=== PATIENT | female | born 1955 | race Caucasian/White ===

== ENCOUNTER 2024-12-02 15:40 | Outpatient (CLI) | payer MEDICARE ==
[2024-12-02 16:34] LABS: #Basophils 0.06 10x3/uL (0.0-0.2); %Basophils 0.8 % (0.0-1.0); %Eosinophils 2.4 % (0.0-10.0); %Lymphocytes 41.4 % (21.0-51.0); %Monocytes 10.2 % (0.0-10.0); %Neutrophils 45.1 % (42.0-75.0); Hematocrit 37.9 % (36.0-47.0); Mean Corpuscular HGB CONC 34.3 g/dL (32.0-36.0); Mean Corpuscular Hemoglobin 31.6 pg (27.0-31.0); Mean Platelet Volume 9.5 fL (7.4-10.4); Platelet Count 165 10x3/uL (130-400); RBC Distribution Width 13.8 % (11.5-14.5); Red Blood Cell (RBC) Count 4.12 mill/uL (4.20-5.40)
[2024-12-02 16:52] LABS: Anion Gap 12 mmol/L (10-20); BUN (Urea Nitrogen) 18 mg/dL (9.8-20.1); Calc. Creatinine Clearance 0 mL/min (70-130); Calcium 10.1 mg/dL (7.8-10.44); Carbon Dioxide 25 mmol/L (23-31); Chloride 103 mmol/L (98-107); Estimated GFR 84; Glucose 193 mg/dL (80-115); Potassium 4.4 mmol/L (3.5-5.1); Sodium 136 mmol/L (136-145)
== END 2024-12-02 15:41 | disposition home or self-care (01) ==
LOC: LABBT 15:40
PROVIDERS: ATTEND Orthopaedic Surgery Hand Surgery
DX: Z01.818 Encounter for other preprocedural examination (principal); M65.341 Trigger finger, right ring finger; M65.331 Trigger finger, right middle finger
CPT/HCPCS: 80048; 85025; 93005; 93010

== ENCOUNTER 2024-12-28 08:50 | Day surgery (SDC) | payer BC, MEDICARE ==
[2024-12-17 10:45] VITALS: BMI 27.4
[2024-12-28] MEDS ORDERED: Bupivacaine PF 0.5% 30 ML VIAL ONE (11:04)
[2024-12-28] MEDS ORDERED: Bacitracin Zinc Ointment 30 gm TUBE ONE (11:04)
[2024-12-28] MEDS ORDERED: CEFAZOLIN 2 GM VIAL ONE (11:40)
[2024-12-28] MEDS ORDERED: Midazolam HCl 2 mg/2 ml Vial ONE (11:49)
[2024-12-28] MEDS ORDERED: PROPOFOL 20 ML ONE (11:50)
[2024-12-28] MEDS ORDERED: Lidocaine 2% PF 5 ML VIAL ONE (11:50)
[2024-12-28] MEDS ORDERED: fentaNYL PF 100 MCG/2 ML SYRINGE ONE (11:50)
[2024-12-28] MEDS ORDERED: Ondansetron PF 4 MG/2 ML Vial ONE (12:30)
[2024-12-28] MEDS ORDERED: fentaNYL 50 mcg/mL 1 mL Vial ONE (12:51)
[2024-12-28] MEDS ORDERED: hydrALAZINE 20 MG/ML VIAL ONE (12:51)
[2024-12-28] MEDS ORDERED: Ketorolac Tromethamine 30 MG (1 mL) VIAL ONE (12:58)
== END 2024-12-28 15:20 | disposition home or self-care (01) ==
LOC: SDC 08:50
PROVIDERS: ATTEND Orthopaedic Surgery Hand Surgery
PROC: 0LN70ZZ Release Right Hand Tendon, Open Approach (ICD-10-PCS; principal; 2024-12-28)
PROC: 0LN70ZZ Release Right Hand Tendon, Open Approach (ICD-10-PCS; 2024-12-28)
DX: M65.341 Trigger finger, right ring finger (principal); M65.331 Trigger finger, right middle finger; M19.90 Unspecified osteoarthritis, unspecified site; E11.9 Type 2 diabetes mellitus without complications; I10 Essential (primary) hypertension; K76.0 Fatty (change of) liver, not elsewhere classified; F32.A Depression, unspecified; E78.5 Hyperlipidemia, unspecified; E11.42 Type 2 diabetes mellitus with diabetic polyneuropathy; Z79.4 Long term (current) use of insulin; Z79.899 Other long term (current) drug therapy
CPT/HCPCS: 26055 ×2; 82962; A6223; J0360; J0665; J1885; J2250; J2405; J2704; J3010; 36416